=== PATIENT | female | born 1980 | race African-American/Black ===

== ENCOUNTER 2016-11-13 03:45 | Emergency (ER) | payer OTHER ==
[2016-11-13 04:53] VITALS: PULSE 82; BMI 20.9
[2016-11-13] MEDS ORDERED: SODIUM CHLORIDE 0.9% 1000 ML INFUS.BAG IV ONE (05:07)
[2016-11-13] MEDS ORDERED: HYDROmorphone HCL CARPU-JECT 1 MG/1 ML DISP.SYRIN IVPUSH ONE ×2 (05:07→06:37)
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
[2016-11-13] MEDS ORDERED: HYDROmorphone HCL CARPU-JECT 1 MG/1 ML DISP.SYRIN ONE ×2 (05:19→06:42)
[2016-11-13 05:53] LABS: URINE APPEARANCE CLEAR; URINE BILIRUBIN NEGATIVE (NEGATIVE); URINE BLOOD NEGATIVE (NEGATIVE); URINE COLOR LTYELLOW; URINE GLUCOSE (UA) NEGATIVE (NEGATIVE); URINE KETONE NEGATIVE (NEGATIVE); URINE LEUK ESTERASE NEGATIVE (NEGATIVE); URINE NITRITE NEGATIVE (NEGATIVE); URINE PROTEIN NEGATIVE (NEGATIVE); URINE UROBILINOGEN NEGATIVE E.U./dl (0.2-1.0)
[2016-11-13 05:57] LABS: BASOPHIL 0.9 % (0-2.0); EOSINOPHIL 1.1 % (0-4.5); MCH 28.9 pg (25.7-33.7); MCHC 35.3 g/dl (32.0-36.0); MEAN CELL VOLUME 81.8 fl (80-96); NEUTROPHILS 55.5 % (42.8-82.8); PLATELET COUNT 160 K/MM3 (134-434); RDW 13.8 % (11.6-15.6); WHITE BLOOD COUNT 5.5 K/mm3 (4.0-10.0)
[2016-11-13 06:12] LABS: ALBUMIN 4.2 g/dl (3.4-5.0); ANION GAP 8 (8-16); BILIRUBIN,TOTAL 1.6 mg/dL (0.2-1.0); CALCIUM 8.5 mg/dL (8.5-10.1); CO2 26 mmol/L (21-32); CREATININE 0.7 mg/dL (0.55-1.02); GLUCOSE,RANDOM 78 mg/dL (74-106); SGOT/AST 14 U/L (15-37); SGPT/ALT 13 U/L (12-78); TOT PROT 6.8 g/dl (6.4-8.2)
[2016-11-13 06:13] LABS: ALK PHOS 81 U/L (45-117)
[2016-11-13] MEDS ORDERED: KETOROLAC TROMETHAMINE 30 MG/1 ML VIAL ONE (06:25)
[2016-11-13] MEDS ORDERED: KETOROLAC TROMETHAMINE 30 MG/1 ML VIAL IVPUSH ONE (06:30)
--- NOTE | 2016-11-13 07:45 | PDOC ---
*Physical Exam - Vital Signs Last Vital Signs Temp Pulse Resp BP Pulse Ox 98 F 82 20 111/85 100 11/13/16 03:46 11/13/16 03:46 11/13/16 03:46 11/13/16 03:46 11/13/16 03:46 - Physical Exam General Appearance: Yes: Appropriately Dressed. No: Apparent Distress HEENT: positive: Normal Voice Neck: positive: Supple Respiratory/Chest: negative: Respiratory Distress Gastrointestinal/Abdominal: positive: Soft. negative: Tender Extremity: positive: Normal Inspection. negative: Tender, Swelling Integumentary: positive: Dry, Warm Neurologic: positive: Fully Oriented, Alert, Normal Mood/Affect ED Treatment Course - LABORATORY CBC & Chemistry Diagram: 11/13/16 05:07 11/13/16 05:07 - ADDITIONAL ORDERS Additional order review: Laboratory Results 11/13/16 11/13/16 11/13/16 05:39 05:39 05:07 Sodium 144 Potassium 4.0 Chloride 110 H Carbon Dioxide 26 Anion Gap 8 BUN 14 D Creatinine 0.7 D Creat Clearance w eGFR > 60 Random Glucose 78 Calcium 8.5 Total Bilirubin 1.6 H D AST 14 L ALT 13 D Alkaline Phosphatase 81 Total Protein 6.8 Albumin 4.2 Urine Color Ltyellow Urine Appearance Clear Urine pH 5.0 Ur Specific [place] 1.012 Urine Protein Negative Urine Glucose (UA) Negative Urine Ketones Negative Urine Blood Negative Urine Nitrite Negative Urine Bilirubin Negative Urine Urobilinogen Negative Ur Leukocyte Esterase Negative Urine HCG, Qual Negative 11/13/16 05:07 RBC 4.09 MCV 81.8 MCHC 35.3 RDW 13.8 MPV 11.0 Neutrophils % 55.5 D Lymphocytes % 36.4 D Monocytes % 6.1 Eosinophils % 1.1 D Basophils % 0.9 - Medications Given in the ED: ED Medications Discontinued Medications Generic Name Dose Route Start Last Admin Trade Name Freq PRN Reason Stop Dose Admin Hydromorphone HCl 1 mg 11/13/16 05:07 11/13/16 05:29 Dilaudid Injection - IVPUSH 11/13/16 05:08 1 mg ONCE ONE Administration Hydromorphone HCl 1 mg 11/13/16 06:37 11/13/16 06:48 Dilaudid Injection - IVPUSH 11/13/16 06:38 1 mg ONCE ONE Administration Ketorolac Tromethamine 30 mg 11/13/16 06:30 11/13/16 06:40 Toradol Injection - IVPUSH 11/13/16 06:31 30 mg ONCE ONE Administration Sodium Chloride 2,000 ml 11/13/16 05:07 11/13/16 05:29 Normal Saline - IV 11/13/16 05:08 2,000 ml ONCE ONE Administration Medical Decision Making - Medical Decision Making 11/13/16 07:43 Patient signed out to me at 7 AM Patient is a 35-year-old female, endorses history of sickle cell disease with frequent pain crisis, denies acute chest or prior transfusions. Currently does not have a atomic fuel assembler and not on any daily meds, presenting with left knee pain x 3 days, similar to her crisis. Has since improved with multiple doses of Dilaudid. Labs pending. Anticipate discharge with referral to atomic fuel assembler 11/13/16 07:45 Rectic count of >3, rest of labs unremarkable. Patient currently pain-free. Will dc with small amount of Dilaudid for pain when necessary and refer to Dr. Briscoe of hematology 11/13/16 07:53 *DC/Admit/Observation/Transfer Diagnosis at time of Disposition: Sickle cell crisis - Discharge Dispostion Disposition: HOME Condition at time of disposition: Improved - Prescriptions Prescriptions: Hydromorphone HCl [Dilaudid] 2 mg PO Q6H PRN #8 tablet MDD 8mg PRN Reason: Pain - Referrals Referrals: Mame Stephens [Primary Care Provider] - Crescencio Briscoe MD [Staff Physician] - - Patient Instructions Printed Discharge Instructions: DI for Sickle Cell Anemia, Pain Crisis -- Adult Additional Instructions: Take medication as directed and follow up with Dr. Briscoe of hematology - Post Discharge Activity
[2016-11-13 08:04] VITALS: BP 126/75; TEMP 97.7
== END 2016-11-13 08:00 | disposition home or self-care (01) ==
LOC: JER 03:45
PROC: 3E033NZ Introduction of Analgesics, Hypnotics, Sedatives into Peripheral Vein, Percutaneous Approach (ICD-10-PCS; principal; 2016-11-13)
PROC: 3E033NZ Introduction of Analgesics, Hypnotics, Sedatives into Peripheral Vein, Percutaneous Approach (ICD-10-PCS; 2016-11-13)
PROC: 3E0333Z Introduction of Anti-inflammatory into Peripheral Vein, Percutaneous Approach (ICD-10-PCS; 2016-11-13)
DX: D57.00 Hb-SS disease with crisis, unspecified (principal)
CPT/HCPCS: 36415; 80053; 81003; 84703; 85025; 85044; 96374; 96375; 96376; 99284-25

== ENCOUNTER 2017-01-31 13:44 | Emergency (ER) | payer OTHER ==
[2017-01-31 13:50] VITALS: BP 108/81; PULSE 92; TEMP 98.8; BMI 21.7
--- NOTE | 2017-01-31 14:05 | PDOC ---
History of Present Illness - General Chief Complaint: Eye Problem Stated Complaint: PINK EYE Time Seen by Provider: 01/31/17 13:52 History Source: Patient Exam Limitations: No Limitations - History of Present Illness Initial Comments: 01/31/17 13:59 36-year-old female presents to the ED with complaints of left eye redness and drainage, and itching for the past few days. Patient denies visual changes, headache, dizziness or recent injury to the affected eye, or eyelid swelling. Timing/Duration: constant Severity: mild Associated Symptoms: reports: denies symptoms Past History - Past Medical History Allergies/Adverse Reactions: Allergies Allergy/AdvReac Type Severity Reaction Status Date / Time No Known Allergies Allergy Verified 01/31/17 13:49 Home Medications: Ambulatory Orders NK [No Known Home Medication] 01/31/17 Anemia: Yes (sickle cell) Diabetes: No GI Disorders: No Disorders: No HTN: No Hypercholesterolemia: No Suicide Attempt (Hx): No Seizures: No - Surgical History Abdominal Surgery: No Appendectomy: No Cardiac Surgery: No Cholecystectomy: No Gastric Stapling: No Orthopedic Surgery: Yes (r femur fx) - Immunization History Immunization Up to Date: Yes - Psycho/Social/Smoking Cessation Hx Anxiety: No Suicidal Ideation: No Smoking Status: No Smoking History: Never smoked Have you smoked in the past 12 months: No Number of Cigarettes Smoked Daily: 0 Hx Alcohol Use: Yes (SOCIAL) Drug/Substance Use Hx: No Substance Use Type: None Hx Substance Use Treatment: No Patient Lives Alone: No Lives with/in: spouse/SO Review of Systems - Review of Systems Able to Perform ROS?: Yes Constitutional: No: Symptoms Reported HEENTM: Yes: Eye Pain, Tearing Integumentary: No: Erythema Neurological: No: Headache *Physical Exam - Vital Signs Last Vital Signs Temp Pulse Resp BP Pulse Ox 98.8 F 92 H 20 108/81 100 01/31/17 13:47 01/31/17 13:47 01/31/17 13:47 01/31/17 13:47 01/31/17 13:47 - Physical Exam General Appearance: Yes: Nourished, Appropriately Dressed. No: Apparent Distress HEENT: positive: EOMI, MAGO, Other (sclera red and noted thick yellowish drainage near the left lacrimal duct) Respiratory/Chest: positive: Lungs Clear, Normal Breath Sounds. negative: Respiratory Distress, Accessory Muscle Use Cardiovascular: positive: Regular Rhythm, Regular Rate. negative: Murmur Gastrointestinal/Abdominal: positive: Soft. negative: Tenderness Extremity: positive: Normal Capillary Refill. negative: Pedal Edema Integumentary: positive: Normal Color, Warm, Moist Neurologic: positive: Motor Strength 5/5 (ambulatory) Medical Decision Making - Medical Decision Making 01/31/17 14:04 Pt with left eye conjunctivitis. Pt ordered for erythromycin oitment *DC/Admit/Observation/Transfer Diagnosis at time of Disposition: Conjunctivitis Qualifiers: Conjunctivitis type: acute Acute conjunctivitis type: bacterial Laterality: left Qualified Code(s): H10.32 - Unspecified acute conjunctivitis, left eye - Discharge Dispostion Disposition: HOME Condition at time of disposition: Good - Referrals Referrals: Mame Stephens [Primary Care Provider] - - Patient Instructions Printed Discharge Instructions: DI for Conjunctivitis Additional Instructions: Please use oitment to left eye. Wash hands frequently.
== END 2017-01-31 14:13 | disposition home or self-care (01) ==
LOC: JERFT 13:44
DX: H10.32 Unspecified acute conjunctivitis, left eye (principal)
CPT/HCPCS: 99281-25

== ENCOUNTER 2017-05-05 21:39 | Emergency (ER) | payer OTHER ==
[2017-05-05 21:45] VITALS: BP 147/72; PULSE 94; TEMP 99.1; BMI 24.3
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
[2017-05-05] MEDS ORDERED: KETOROLAC TROMETHAMINE 60 MG/2 ML VIAL IM ONE (23:17)
[2017-05-05] MEDS ORDERED: KETOROLAC TROMETHAMINE 60 MG/2 ML VIAL ONE (23:35)
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
== END 2017-05-06 00:07 ==
LOC: SUPCPDRO 21:39 → JER 21:39
CPT/HCPCS: 99281-25

== ENCOUNTER 2020-05-10 13:26 | Emergency (ER) | payer OTHER ==
[2020-05-10 13:40] VITALS: BMI 22.6
[2020-05-10] MEDS ORDERED: HYDROmorphone HCL CARPU-JECT 2 MG/1 ML DISP.SYRIN IVPB ONE (14:40)
[2020-05-10] MEDS ORDERED: HYDROmorphone HCl 2 MG/ML VIAL ONE ×2 (14:42→16:46)
[2020-05-10 15:15] LABS: BASO % 1.1 % (0-2.0); EOS % 2.3 % (0-4.5); HEMATOCRIT 33.5 % (32.4-45.2); HEMOGLOBIN 11.6 GM/dL (10.7-15.3); LYMPH % 37.3 % (8-40); MCH 28.2 pg (25.7-33.7); MCHC 34.6 g/dl (32.0-36.0); MEAN CELL VOLUME 81.5 fl (80-96); MEAN PLT VOLUME 10.4 fl (7.5-11.1); MONO % 4.8 % (3.8-10.2); NEUT % 54.5 % (42.8-82.8); PLATELET COUNT 159 K/MM3 (134-434); RBC 4.11 M/mm3 (3.60-5.2); RDW 13.9 % (11.6-15.6); RETICULOCYTES 3.04 % (0.5-1.5); WHITE BLOOD COUNT 6.7 K/mm3 (4.0-10.0)
[2020-05-10] MEDS ORDERED: SODIUM CHLORIDE 1,000 ML IV ONE (15:18)
--- NOTE | 2020-05-10 15:22 | PDOC ---
History of Present Illness - General Chief Complaint: Sickle Cell Crisis Stated Complaint: LT LEG PAIN Time Seen by Provider: 05/10/20 14:29 - History of Present Illness Initial Comments: 05/10/20 15:13 39yo F with PMH of sickle cell disease and traumatic right femur fracture present with left hip pain since this morning. She states it feels like past crises, but is just the left leg, whereas in the past it has been bilateral and made her unable to walk. She complains fo throbbing left hip pain, radiating down the leg and to the lower back. After given 1mg dilaudid IV in the ER, it localized just to the left hip. Also reports feeling more cold recently, which is a trigger for her. Denies trauma, fevers, saddle anesthesia, urinary or GI symptoms. Denies chest pain or SOB. PMH/PSH: as above Meds: none Allergies: none ETOH/tob/drugs: denies ROS GENERAL/CONSTITUTIONAL: No fever. Chills. No weakness. HEAD, EYES, EARS, NOSE AND THROAT: No change in vision. No ear pain or discharge. No sore throat. CARDIOVASCULAR: No chest pain or shortness of breath RESPIRATORY: No cough, wheezing, or hemoptysis. GASTROINTESTINAL: No nausea, vomiting, diarrhea or constipation. GENITOURINARY: No dysuria, frequency, or change in urination. MUSCULOSKELETAL: Left hip pain. No neck pain. SKIN: No rash NEUROLOGIC: No headache, vertigo, loss of consciousness, or change in strength/sensation. ENDOCRINE: No increased thirst. No abnormal weight change HEMATOLOGIC/LYMPHATIC: No anemia, easy bleeding, or history of blood clots. ALLERGIC/IMMUNOLOGIC: No hives or skin allergy. PE GENERAL: Awake, alert, and fully oriented, writhing in pain with tears streaming down her face. More comfortable after 1mg dilaudid IV HEAD: No signs of trauma, normocephalic, atraumatic EYES: PERRLA, EOMI, sclera anicteric, conjunctiva clear ENT: Auricles normal inspection, hearing grossly normal, nares patent, oropharynx clear without exudates. Moist mucosa NECK: Normal ROM, supple, no lymphadenopathy, JVD, or masses LUNGS: No distress, speaks full sentences, clear to auscultation bilaterally HEART: Regular rate and rhythm, normal S1 and S2, no murmurs, rubs or gallops, peripheral pulses normal and equal bilaterally. ABDOMEN: Soft, nontender, normoactive bowel sounds. No guarding, no rebound. No masses EXTREMITIES : Normal inspection, Normal range of motion, no edema. No clubbing or cyanosis. Left anterior pelvis and quad tender to palpation. Full active and passive range of motion. Normal strength and sensation. Good distal pulses. NEUROLOGICAL: Cranial nerves II through XII grossly intact. Normal speech, normal gait, no focal sensorimotor deficits SKIN: Warm, Dry, normal turgor, no rashes or lesions noted Vital Signs Temp Pulse Resp BP Pulse Ox 98.3 F 84 20 107/66 100 05/10/20 13:38 05/10/20 13:38 05/10/20 13:38 05/10/20 13:38 05/10/20 13:38 MDM 9yo F with PMH of sickle cell disease and traumatic right femur fracture present with left hip pain since this morning. Differential includes sickle cell crisis, avascular necrosis, osteomyeletis. -CBC, CMP, reticulocytes, -dilaudid 1mg IV -plain films of the left hip/pelvis and femur 05/10/20 16:45 Patient was still in significant pain, so additional 0.5mg dilaudid given 05/10/20 16:47 Labs notable for a reticulocyte percentage of 3.04. X-rays negative 05/10/20 18:13 Patient reports improvement in symptoms after dilaudid. She has not seen a coil tier in 3 years. Will refer to hematology and DC on naproxen. Patient understands and agrees to plan Past History - Medical History Allergies/Adverse Reactions: Allergies Allergy/AdvReac Type Severity Reaction Status Date / Time No Known Allergies Allergy Verified 05/10/20 13:38 Home Medications: Ambulatory Orders Naproxen 500 mg PO BID PRN 7 Days #14 tablet 05/10/20 Anemia: Yes (sickle cell) COPD: No Diabetes: No GI Disorders: No Disorders: No HTN: No Hypercholesterolemia: No Seizures: No - Surgical History Abdominal Surgery: No Appendectomy: No Cardiac Surgery: No Cholecystectomy: No Gastric Stapling: No Orthopedic Surgery: Yes (r femur fx) - Reproductive History Is Patient Now?: No - Immunization History Immunization Up to Date: Yes - Psycho-Social/Smoking History Smoking Status: No Smoking History: Current every day smoker Have you smoked in the past 12 months: No Number of Cigarettes Smoked Daily: 1 Information on smoking cessation initiated: No - Substance Abuse Hx (Audit-C & DAST Scrn) How often the patient has a drink containing alcohol: Never Score: In Men: 4 or > Positive; In Women: 3 or > Positive: 0 Screen Result (Pos requires Nsg. Audit-10AR): Negative In the last yr the pt used illegal drug/Rx for NonMed reason: Yes Score: Yes response is considered Positive: 1 Screen Result (Positive result requires Nsg. DAST-10): Positive *Physical Exam - Vital Signs Last Vital Signs Temp Pulse Resp BP Pulse Ox 98.3 F 84 20 107/66 100 05/10/20 13:38 05/10/20 13:38 05/10/20 13:38 05/10/20 13:38 05/10/20 13:38 ED Treatment Course - LABORATORY CBC & Chemistry Diagram: 05/10/20 14:20 05/10/20 14:20 - RADIOLOGY Radiology Studies Ordered: Category Date Time Status FEMUR-LEFT [RAD] Stat Radiology 05/10/20 15:11 Ordered HIP & PELVIS-LEFT [RAD] Stat Radiology 05/10/20 15:12 Ordered - Medications Given in the ED: ED Medications Discontinued Medications Generic Name Dose Route Start Last Admin Trade Name Toshia PRN Reason Stop Dose Admin Hydromorphone HCl 1 mg 05/10/20 14:40 05/10/20 14:48 Dilaudid Injection - IVPB 05/10/20 14:41 1 mg ONCE ONE Administration Discharge - Discharge Information Problems reviewed: Yes Clinical Impression/Diagnosis: Sickle cell crisis Condition: Fair Disposition: HOME - Admission No - Additional Discharge Information Prescriptions: Naproxen 500 mg PO BID PRN 7 Days #14 tablet PRN Reason: Pain - Follow up/Referral Referrals: Robina Downing MD [Staff Physician] - Sandoval Franco MD [Primary Care Provider] - - Patient Discharge Instructions Patient Printed Discharge Instructions: DI for Sickle Cell Anemia, Pain Crisis -- Adult Additional Instructions: You were seen in the ER for left hip pain. Your labs showed evidence that you were in a sickle cell pain crisis. Your x-rays did not show any structural problems with your hip. We sent a prescription for naproxen to your pharmacy. In order to prevent these crises from happening, you need to follow up with a coil tier as soon as possible. We gave you a referral to Dr. Downing.. Please follow up with your primary doctor within one week. Please return to the ER for continued or worsening symptoms, for fever, chest pain, or any other reason. - Post Discharge Activity
--- NOTE | 2020-05-10 15:26 | PDOC ---
Attending Attestation - Resident Resident Name: Peter Talamantes - ED Attending Attestation I have performed the following: I have examined & evaluated the patient, The case was reviewed & discussed with the resident, I agree w/resident's findings & plan - HPI HPI: 05/10/20 15:23 39-year-old female with history of sickle cell SS relatively well-controlled with about once yearly visits to the emergency department for sickle cell crisis characterized by joint pain typically in the low back and hips, presents today with left leg pain over the last few days. Triggers are usually temperature variations, and she is very careful to avoid these. Does not take any medications on a daily basis, has had no significant complications of sickle cell in the past. - Physicial Exam PE: 05/10/20 15:24 Lying in stretcher, tearful in moderate distress from upper left leg pain, otherwise conversant Moist mucosa Heart is regular, lungs are clear, abdomen benign No focal bony tenderness or deformity, full range of motion of hip and knee and ankle on left leg, no midline spine tenderness, no soft tissue swelling or joint effusion, 2+ distal pulses - Medical Decision Making 05/10/20 15:25 39-year-old female with history of sickle cell SS with typical crisis joint pain in the left leg/hip, neurovascular intact otherwise without acute neurologic or infectious process and no other red flags. Check labs IV fluids hydration, pain control, oxygen Left hip x-ray Reassess and disposition accordingly Discharge - Discharge Information Problems reviewed: Yes Clinical Impression/Diagnosis: Sickle cell crisis Condition: Fair - Follow up/Referral Referrals: Sandoval Franco MD [Primary Care Provider] - - Patient Discharge Instructions - Post Discharge Activity
[2020-05-10] MEDS ORDERED: HYDROmorphone HCL CARPU-JECT 2 MG/1 ML DISP.SYRIN IVPUSH ONE (15:41)
[2020-05-10 15:49] LABS: BILIRUBIN,TOTAL 0.9 mg/dL (0.2-1); BLOOD UREA NITROGEN 11.6 mg/dL (7-18); CALCIUM 8.9 mg/dL (8.5-10.1); CREATININE 0.8 mg/dL (0.55-1.3); POTASSIUM 4.3 mmol/L (3.5-5.1)
[2020-05-10 17:37] VITALS: BP 101/62; PULSE 83; TEMP 97.6
== END 2020-05-10 18:07 | disposition home or self-care (01) ==
LOC: JER 13:26
PROC: 3E033NZ Introduction of Analgesics, Hypnotics, Sedatives into Peripheral Vein, Percutaneous Approach (ICD-10-PCS; principal; 2020-05-10)
PROC: 3E0337Z Introduction of Electrolytic and Water Balance Substance into Peripheral Vein, Percutaneous Approach (ICD-10-PCS; 2020-05-10)
DX: D57.219 Sickle-cell/Hb-C disease with crisis, unspecified (principal)
CPT/HCPCS: 36415; 73523-TC-FY; 73552-TC-LT-FY; 80053; 84703; 85025; 85045; 99285-25

== ENCOUNTER 2020-05-31 13:45 | Emergency (ER) | payer OTHER ==
[2020-05-31 13:57] VITALS: BMI 22.6
--- NOTE | 2020-05-31 13:58 | PDOC ---
Rapid Medical Evaluation Time Seen by Provider: 05/31/20 13:51 Medical Evaluation: Allergies Allergy/AdvReac Type Severity Reaction Status Date / Time No Known Allergies Allergy Verified 05/10/20 13:38 05/31/20 13:51 Pt with hx of sickle cell presents for R sided flank pain since yesterday. States that she woke up with the pain. 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 Denies trauma or new exercise routine Exam: TTP of the R flank, RUQ Orders: labs, IV. Imaging deferred to provider Pt to proceed to the ER for further evaluation Discharge Disposition - Diagnosis Abdominal pain - Referrals - Patient Instructions - Post Discharge Activity
--- NOTE | 2020-05-31 15:23 | PDOC ---
History of Present Illness - General Chief Complaint: Pain Stated Complaint: RT ABD PAIN Time Seen by Provider: 05/31/20 13:51 History Source: Patient Exam Limitations: No Limitations - History of Present Illness Initial Comments: 05/31/20 15:20 Patient is a 39-year-old female with history of sickle cell disease who presents to the ED with complaint of right flank pain that started yesterday prior to going to work. She states the pain does not radiate. She denies any fevers or chills. She denies any shortness of breath or chest pain. She states the pain is less today but she still feels that so she came to the ED for evaluation to make sure everything was okay. She denies any injuries. She has not taken anything for symptoms. She has never had acute chest syndrome. She was seen 1 month ago for a sickle crisis but states she has been doing well ever since. Past History - Medical History Allergies/Adverse Reactions: Allergies Allergy/AdvReac Type Severity Reaction Status Date / Time No Known Allergies Allergy Verified 05/31/20 13:52 Anemia: Yes (sickle cell) COPD: No Diabetes: No GI Disorders: No Disorders: No HTN: No Hypercholesterolemia: No Seizures: No - Surgical History Abdominal Surgery: No Appendectomy: No Cardiac Surgery: No Cholecystectomy: No Gastric Stapling: No Orthopedic Surgery: Yes (r femur fx) - Reproductive History Is Patient Now?: No - Immunization History Immunization Up to Date: Yes - Psycho-Social/Smoking History Smoking Status: No Smoking History: Never smoked Have you smoked in the past 12 months: No Number of Cigarettes Smoked Daily: 1 - Substance Abuse Hx (Audit-C & DAST Scrn) How often the patient has a drink containing alcohol: Never Score: In Men: 4 or > Positive; In Women: 3 or > Positive: 0 Screen Result (Pos requires Nsg. Audit-10AR): Negative In the last yr the pt used illegal drug/Rx for NonMed reason: No Score: Yes response is considered Positive: 0 Screen Result (Positive result requires Nsg. DAST-10): Negative Review of Systems - Review of Systems Comments:: 05/31/20 15:21 - Review of Systems Able to Perform ROS?: Yes Constitutional: No: Fever, Chills, Loss of Appetite, Night Sweats, Weakness HEENTM: No: Eye Pain, Vision changes, Ear Pain, Throat Pain, Throat Swelling, Mouth Pain, Difficulty Swallowing Respiratory: No: Cough, Shortness of Breath, Wheezing, Sputum Production Cardiac (ROS): No: Chest Pain, Chest Tightness, Palpitations, Irregular Heart Beat, Edema ABD/GI: No: Nausea, Vomiting, Abdominal Pain, Diarrhea; positive: Right flank pain : No Dysuria, No Hematuria, No Frequency, No Urgency Musculoskeletal: No: Muscle Pain, Back Pain, Joint Pain, Muscle Weakness, Neck Pain Integumentary: No: Lesions, Rash Neurological: No: Headache, Numbness, Tingling, Weakness, Speech Difficulties *Physical Exam - Vital Signs Last Vital Signs Temp Pulse Resp BP Pulse Ox 98.4 F 78 16 125/82 100 05/31/20 13:52 05/31/20 13:52 05/31/20 13:52 05/31/20 13:52 05/31/20 13:52 - Physical Exam 05/31/20 15:22 - Physical Exam General Appearance: Nourished, Appropriately Dressed, No Distress HEENT: EOMI, Normal Voice, Hearing Grossly Normal Neck: Supple, No Lymphadenopathy (R), No Lymphadenopathy (L), No Rigidity, No Decreased range of motion Respiratory/Chest: Lungs Clear, Normal Breath Sounds. No Respiratory Distress, No Accessory Muscle Use Cardiovascular: Regular Rhythm, Regular Rate, S1, S2 Gastrointestinal/Abdominal: Normal Bowel Sounds, Soft. Non-tender, No Guarding, No Rebound, No Rigidity; no reproducible right flank tenderness to palpation. Negative Hayes sign. Abdomen soft without rebound. No rigidity. Musculoskeletal: Normal Inspection. No Decreased Range of Motion Extremity: Normal Capillary Refill, Normal Inspection Integumentary: Normal Color, Dry. 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 Plan: -Labs ordered -EKG ordered -Chest x-ray ordered -Will reassess 05/31/20 16:21 Discussed the case with Dr. Mcmillan and the patient. We have discussed concern for renal/hepatic/splenic infarct and the need for a CT with contrast to rule out these concerns. The patient is okay with having a CT scan. The CT has been ordered. EKG at 15: 20 shows normal sinus rhythm at [address] or T wave abnormalities. 05/31/20 18:05 PT feeling well and is pending CT read. 05/31/20 18:21 The patient has been made aware that her CT is negative for acute splenic, hepatic or renal infarcts. Her pain is likely secondary to musculoskeletal pathology. She can take Tylenol or ibuprofen for pain as needed. She can follow-up with her primary doctor within 1 to 2 days for repeat evaluation. She understands and agrees with this treatment plan and she is stable for discharge. Discharge - Discharge Information Problems reviewed: Yes Clinical Impression/Diagnosis: Abdominal pain, Right flank pain, Musculoskeletal pain Condition: Stable Disposition: HOME - Follow up/Referral Referrals: Sandoval Franco MD [Primary Care Provider] - 24 hours - Patient Discharge Instructions Patient Printed Discharge Instructions: DI for Muscle Strain, DI for Flank Pain Additional Instructions: Your labs and your CT scan were all within normal limits. You should follow-up with your primary doctor within 1 to 2 days for repeat evaluation. Your pain is likely secondary to a musculoskeletal cause. Take Tylenol or ibuprofen as needed for pain. - Post Discharge Activity Work/Back to School Note: Back to Work
[2020-05-31 15:36] LABS: BASO % 0.7 % (0-2.0); HEMATOCRIT 32.9 % (32.4-45.2); HEMOGLOBIN 11.6 GM/dL (10.7-15.3); LYMPH % 24.8 % (8-40); MCH 28.9 pg (25.7-33.7); MCHC 35.4 g/dl (32.0-36.0); MEAN CELL VOLUME 81.7 fl (80-96); MEAN PLT VOLUME 10.6 fl (7.5-11.1); MONO % 7.8 % (3.8-10.2); NEUT % 64.7 % (42.8-82.8); PLATELET COUNT 161 K/MM3 (134-434); RBC 4.03 M/mm3 (3.60-5.2); RDW 14.1 % (11.6-15.6); RETICULOCYTES 2.51 % (0.5-1.5); WHITE BLOOD COUNT 5.3 K/mm3 (4.0-10.0)
[2020-05-31 15:37] LABS: URINE APPEARANCE CLEAR; URINE BILIRUBIN NEGATIVE (NEGATIVE); URINE COLOR YELLOW; URINE GLUCOSE (UA) NEGATIVE (NEGATIVE); URINE KETONE NEGATIVE (NEGATIVE); URINE LEUK ESTERASE NEGATIVE (NEGATIVE); URINE NITRITE NEGATIVE (NEGATIVE); URINE PROTEIN NEGATIVE (NEGATIVE)
[2020-05-31 15:40] LABS: HCG,QUALITATIVE URINE Negative; INR 1.17 (0.83-1.09); PROTHROMBIN TIME (PATIENT) 13.8 SEC (9.7-13.0)
[2020-05-31 15:59] LABS: ALBUMIN 3.8 g/dl (3.4-5.0); BILIRUBIN,TOTAL 0.8 mg/dL (0.2-1); BLOOD UREA NITROGEN 8.6 mg/dL (7-18); CALCIUM 8.6 mg/dL (8.5-10.1); CREATININE 0.7 mg/dL (0.55-1.3); POTASSIUM 3.6 mmol/L (3.5-5.1); TOT PROT 6.9 g/dl (6.4-8.2)
[2020-05-31] MEDS ORDERED: SODIUM CHLORIDE 0.9% 500 ML INFUS.BAG IV ONE (16:24)
[2020-05-31 18:49] VITALS: BP 107/73; PULSE 74; TEMP 98
--- NOTE | 2020-06-01 09:43 | EKG ---
Test Reason : Blood Pressure : / mmHG Vent. Rate : 071 BPM Atrial Rate : 071 BPM P-R Int : 154 ms QRS Dur : 068 ms QT Int : 384 ms P-R-T Axes : 043 022 027 degrees QTc Int : 417 ms NORMAL SINUS RHYTHM NORMAL ECG WHEN COMPARED WITH ECG OF 20-JUL-2016 12:34, NO SIGNIFICANT CHANGE WAS FOUND Confirmed by Emile Boogie ([id number]) on 06/01/2020 9:42:59 AM Referred By: Confirmed By:Emile Boogie
== END 2020-05-31 18:40 | disposition home or self-care (01) ==
LOC: JER 13:45
DX: R10.9 Unspecified abdominal pain (principal)
CPT/HCPCS: 36415; 71046-TC-FY; 74177-TC; 80053; 81003; 84703; 85025; 85045; 85610; 87086; 93005; 93010; 99285-25; Q9967

== ENCOUNTER 2020-06-14 13:17 | Emergency (ER) | payer OTHER ==
[2020-06-14 13:30] VITALS: BP 121/69; PULSE 97; TEMP 98.2; BMI 22.6
[2020-06-14] MEDS ORDERED: SODIUM CHLORIDE 1,000 ML IV STA (14:26)
[2020-06-14] MEDS ORDERED: ACETAMINOPHEN 1000 MG/100 ML VIAL (NON FORMULARY) IVPB ONE (14:26)
[2020-06-14] MEDS ORDERED: LIDOCAINE 5% TOPICAL PATCH TP ONE (14:26)
[2020-06-14] MEDS ORDERED: ACETAMINOPHEN INJECTION 100 ML IVPB ONE (15:00)
--- NOTE | 2020-06-14 15:17 | PDOC ---
History of Present Illness - General Chief Complaint: Pain Stated Complaint: ABD PAID Time Seen by Provider: 06/14/20 13:31 Past History - Travel History Traveled outside of the country in the last 30 days: No Close contact w/someone who was outside of country & ill: No - Medical History Allergies/Adverse Reactions: Allergies Allergy/AdvReac Type Severity Reaction Status Date / Time No Known Allergies Allergy Verified 05/31/20 13:52 Home Medications: Ambulatory Orders Cephalexin Monohydrate [Keflex -] 500 mg PO BID #14 capsule 06/14/20 Anemia: Yes (sickle cell) COPD: No Diabetes: No GI Disorders: No Disorders: No HTN: No Hypercholesterolemia: No Seizures: No - Surgical History Abdominal Surgery: No Appendectomy: No Cardiac Surgery: No Cholecystectomy: No Gastric Stapling: No Orthopedic Surgery: Yes (r femur fx) - Reproductive History Is Patient Now?: No - Immunization History Immunization Up to Date: Yes - Psycho-Social/Smoking History Smoking Status: No Smoking History: Never smoked Have you smoked in the past 12 months: No Number of Cigarettes Smoked Daily: 1 - Substance Abuse Hx (Audit-C & DAST Scrn) How often the patient has a drink containing alcohol: Never Score: In Men: 4 or > Positive; In Women: 3 or > Positive: 0 Screen Result (Pos requires Nsg. Audit-10AR): Negative In the last yr the pt used illegal drug/Rx for NonMed reason: No Score: Yes response is considered Positive: 0 Screen Result (Positive result requires Nsg. DAST-10): Negative Review of Systems - Review of Systems Able to Perform ROS?: Yes Comments:: 06/14/20 18:35 CONSTITUTIONAL: Absent: fever, chills, diaphoresis, generalized weakness, malaise, loss of appetite HEENT: Absent: rhinorrhea, nasal congestion, throat pain, throat swelling, difficulty swallowing, mouth swelling, ear pain, eye pain, visual Changes CARDIOVASCULAR: Absent: chest pain, loss of consciousness, palpitations, irregular heart rate, peripheral edema RESPIRATORY: Absent: cough, shortness of breath, dyspnea with exertion, orthopnea, wheezing, stridor, hemoptysis GASTROINTESTINAL: Absent: abdominal pain, abdominal distension, nausea, vomiting, diarrhea, constipation, melena, hematochezia GENITOURINARY: Present: R flank pain, hematuria Absent: dysuria, frequency, urgency, hesitancy, genital pain MUSCULOSKELETAL: Absent: myalgia, arthralgia, joint swelling SKIN: Absent: rash, itching, pallor HEMATOLOGIC/IMMUNOLOGIC: Absent: easy bleeding, easy bruising, lymphadenopathy, frequent infections ENDOCRINE: Absent: unexplained weight gain, unexplained weight loss, heat intolerance, cold intolerance NEUROLOGIC: Absent: headache, focal weakness or paresthesias, dizziness, unsteady gait, seizure, mental status changes, bladder or bowel incontinence PSYCHIATRIC: Absent: anxiety, depression, suicidal or homicidal ideation, hallucinations. Is the patient limited Citizen Of [place] proficient: No *Physical Exam - Vital Signs Last Vital Signs Temp Pulse Resp BP Pulse Ox 98.2 F 97 H 16 121/69 98 06/14/20 13:28 06/14/20 13:28 06/14/20 13:28 06/14/20 13:28 06/14/20 13:28 - Physical Exam 06/14/20 18:39 GENERAL: Well developed, well nourished. Awake and alert. No acute distress. HEENT: Normocephalic, atraumatic. PERRLA, EOMI. No conjunctival pallor. Sclera are non- icteric. Moist mucous membranes. Oropharynx is clear. NECK: Supple. Full ROM. No JVD. Carotid pulses 2+ and symmetric, without bruits. No thyromegaly. No lymphadenopathy. CARDIOVASCULAR: Regular rate and rhythm. No murmurs, rubs, or gallops. Distal pulses are 2+ and symmetric. PULMONARY: No evidence of respiratory distress. Lungs clear to auscultation bilaterally. No wheezing, rales or rhonchi. ABDOMINAL: Soft. Non-tender. Non-distended. No rebound or guarding. No organomegaly. Normoactive bowel sounds. MUSCULOSKELETAL Normal range of motion at all joints. No bony deformities or tenderness. (+) R CVA tenderness. EXTREMITIES: No cyanosis. No clubbing. No edema. No calf tenderness. SKIN: Warm and dry. Normal capillary refill. No rashes. No jaundice. NEUROLOGICAL: Alert, awake, appropriate. Cranial nerves 2-12 intact. No deficits to light touch and temperature in face, upper extremities and lower extremities. No motor deficits in the in face, upper extremities and lower extremities. Normoreflexic in the upper and lower extremities. Normal speech. Toes are down-going bilaterally. Gait is normal without ataxia. PSYCHIATRIC: Cooperative. Good eye contact. Appropriate mood and affect. ED Treatment Course - LABORATORY CBC & Chemistry Diagram: 06/14/20 16:40 06/14/20 16:40 - RADIOLOGY Radiology Studies Ordered: Category Date Time Status KIDNEY / RENAL US [US] Stat Ultrasound 06/14/20 14:26 Ordered PELVIC / BLADDER US [US] Stat Ultrasound 06/14/20 14:26 Ordered Medical Decision Making - Medical Decision Making 06/14/20 18:40 The patient with PMH of sickle cell, presents to the ER for evaluation of R flank pain and hematuria for the past 4 days. She states that she had similar symptoms on 05/31 for which she had a negative CTA and r/o renal artery dissect ion. She states the pain mildly improved after her visit, but returned over the last 4 days. Denies n/v/d, fever, sob, chest pain. A/P: Flank pain On exam, pt with R CVAT Given recent negative CTA, will order ultrasounds to rule out kidney stones as patient has 3+ blood in her urine. Does not seem like her typical sickle cell pain. No acute chest syndrome at this time. Basic labs unremarkable. Patient with also leukoesterase in the urine. Will treat for UTI. Ultrasound showed no evidence of stones at this time. No hydronephrosis. We will discharge home with primary care follow-up I discussed the physical exam findings, ancillary test results and final diagnoses with the patient. I answered all of the patient's questions. The patient was satisfied with the care received and felt comfortable with the discharge plan and treatment plan. The Patient agrees to follow up with the primary care physician/specialist within 24-72 hours. Return precautions were given. Discharge - Discharge Information Problems reviewed: Yes Clinical Impression/Diagnosis: UTI (urinary tract infection) Qualifiers: Urinary tract infection type: acute cystitis Hematuria presence: with hematuria Qualified Code(s): N30.01 - Acute cystitis with hematuria Condition: Stable Disposition: HOME - Admission No - Additional Discharge Information Prescriptions: Cephalexin Monohydrate [Keflex -] 500 mg PO BID #14 capsule - Follow up/Referral Referrals: [facility] [place] [Provider Group] - Patient Discharge Instructions Patient Printed Discharge Instructions: DI for Urinary Tract Infection (UTI) Additional Instructions: You have a urinary tract infection. This caused by bacteria. Please drink plenty of fluids. Take your antibiotics as prescribed. Finish the entire dose even if you feel better. You may take Tylenol or Motrin as needed for pain Please follow up with your primary care doctor this week. Return to the emergency department if you have fevers, chills, nausea, vomiting, back pain, or have any changes in your symptoms. - Post Discharge Activity Work/Back to School Note: Back to Work
[2020-06-14 16:54] LABS: EPI CELLS 26 /uL (0-25.1); HYALINE CASTS 1 /uL (0-3.1); PH,URINE >= 9.0 (5.0-8.0); URINE APPEARANCE CLOUDY; URINE BACTERIA 57 /uL (0-1359); URINE BILIRUBIN NEGATIVE (NEGATIVE); URINE COLOR RED; URINE GLUCOSE (UA) NEGATIVE (NEGATIVE); URINE KETONE NEGATIVE (NEGATIVE); URINE LEUK ESTERASE 1+ (NEGATIVE); URINE NITRITE NEGATIVE (NEGATIVE); URINE PROTEIN 2+ (NEGATIVE); URINE WBC 62 /uL (0-25.8)
[2020-06-14 16:56] LABS: HCG,QUALITATIVE URINE Negative
[2020-06-14 17:02] LABS: INR 1.04 (0.83-1.09); PROTHROMBIN TIME (PATIENT) 12.3 SEC (9.7-13.0)
[2020-06-14 17:25] LABS: BASO % 0.7 % (0-2.0); EOS % 1.6 % (0-4.5); HEMATOCRIT 32.8 % (32.4-45.2); HEMOGLOBIN 11.6 GM/dL (10.7-15.3); MCH 29.1 pg (25.7-33.7); MCHC 35.4 g/dl (32.0-36.0); MEAN CELL VOLUME 82.1 fl (80-96); MEAN PLT VOLUME 10.6 fl (7.5-11.1); MONO % 6.7 % (3.8-10.2); PLATELET COUNT 189 K/MM3 (134-434); RDW 14.1 % (11.6-15.6); RETICULOCYTES 2.35 % (0.5-1.5); WHITE BLOOD COUNT 5.8 K/mm3 (4.0-10.0)
[2020-06-14 17:30] LABS: ALBUMIN 3.9 g/dl (3.4-5.0); ALK PHOS 83 U/L (45-117); ANION GAP 7 MMOL/L (8-16); BILIRUBIN,TOTAL 0.6 mg/dL (0.2-1); BLOOD UREA NITROGEN 10.5 mg/dL (7-18); CHLORIDE 105 mmol/L (98-107); CO2 26 mmol/L (21-32); CREATININE 0.7 mg/dL (0.55-1.3); GLUCOSE,RANDOM 77 mg/dL (74-106); POTASSIUM 4.5 mmol/L (3.5-5.1); SGOT/AST 24 U/L (15-37); SGPT/ALT 27 U/L (13-61); SODIUM 139 mmol/L (136-145); TOT PROT 7.6 g/dl (6.4-8.2)
[2020-06-14 17:40] LABS: CALCIUM 7.7 mg/dL (8.5-10.1)
[2020-06-14 18:38] LABS: URINE RBC 23783.4 /uL (0-23.9)
[2020-06-14 18:39] LABS: YEAST NONE SEEN (NEGATIVE)
== END 2020-06-14 18:55 | disposition home or self-care (01) ==
LOC: JER 13:17
PROC: 3E0333Z Introduction of Anti-inflammatory into Peripheral Vein, Percutaneous Approach (ICD-10-PCS; principal; 2020-06-14)
PROC: 3E0337Z Introduction of Electrolytic and Water Balance Substance into Peripheral Vein, Percutaneous Approach (ICD-10-PCS; 2020-06-14)
DX: N30.01 Acute cystitis with hematuria (principal)
CPT/HCPCS: 36415; 76775-TC; 76856-TC; 80053; 81003; 82550; 84484; 84703; 85025; 85045; 85610; 99284-25; J0131

== ENCOUNTER 2021-08-07 10:38 | Emergency (ER) | payer OTHER ==
[2021-08-07 10:45] VITALS: BP 97/67; PULSE 96; TEMP 97; BMI 22.4
[2021-08-07] MEDS ORDERED: traMADol HCL 50 MG TABLET PO ONE (11:20)
[2021-08-07] MEDS ORDERED: HYDROmorphone HCL CARPU-JECT 2 MG/1 ML DISP.SYRIN IVPUSH ONE ×2 (11:25→13:21)
[2021-08-07] MEDS ORDERED: HYDROmorphone HCl 2 MG/ML VIAL ONE (11:47)
[2021-08-07 12:16] LABS: BASO % 0.6 % (0-2.0); EOS % 0.6 % (0-4.5); HEMATOCRIT 27.6 % (32.4-45.2); HEMOGLOBIN 9.7 GM/dL (10.7-15.3); LYMPH % 14.5 % (8-40); MCH 29.4 pg (25.7-33.7); MEAN CELL VOLUME 83.9 fl (80-96); MEAN PLT VOLUME 10.4 fl (7.5-11.1); MONO % 5.1 % (3.8-10.2); NEUT % 79.2 % (42.8-82.8); PLATELET COUNT 159 10^3/uL (134-434); RBC 3.29 M/mm3 (3.60-5.2); RETICULOCYTES 6.56 % (0.5-1.5); WHITE BLOOD COUNT 9.8 K/mm3 (4.0-10.0)
[2021-08-07 12:54] LABS: ALBUMIN 3.5 g/dl (3.4-5.0); BLOOD UREA NITROGEN 6.1 mg/dL (7-18); CALCIUM 8.8 mg/dL (8.5-10.1)
[2021-08-07 12:58] LABS: CREATININE 0.7 mg/dL (0.55-1.3)
[2021-08-07 12:59] LABS: BILIRUBIN,TOTAL 1.1 mg/dL (0.2-1); TOT PROT 6.8 g/dl (6.4-8.2)
== END 2021-08-07 15:40 | disposition home or self-care (01) ==
LOC: JER 10:38
PROC: 3E033NZ Introduction of Analgesics, Hypnotics, Sedatives into Peripheral Vein, Percutaneous Approach (ICD-10-PCS; principal; 2021-08-07)
PROC: 3E033GC Introduction of Other Therapeutic Substance into Peripheral Vein, Percutaneous Approach (ICD-10-PCS; 2021-08-07)
DX: D57.00 Hb-SS disease with crisis, unspecified (principal)
CPT/HCPCS: 36415; 71046-TC-FY; 76817-TC; 80053; 84702; 84703; 85025; 85045; 86850; 86900; 86901; 96374; 96375; 99284-25; C9803; U0003; U0005

== ENCOUNTER 2023-05-22 14:58 | Emergency (ER) | payer OTHER ==
[2023-05-22 15:04] VITALS: BP 116/86; PULSE 96; RESP 20; TEMP 98.4; BMI 26.2
[2023-05-22] MEDS ORDERED: KETOROLAC TROMETHAMINE 30 MG/1 ML VIAL IM ONE (15:59)
[2023-05-22] MEDS ORDERED: KETOROLAC TROMETHAMINE 30 MG/1 ML VIAL ONE (16:10)
[2023-05-22 16:59] LABS: EPI CELLS 20 /uL (0-25.1); HCG,QUALITATIVE URINE Negative; HYALINE CASTS 0 /uL (0-3.1); PH,URINE 5.5 (5.0-8.0); URINE APPEARANCE CLEAR; URINE BACTERIA 357 /uL (0-1359); URINE BILIRUBIN NEGATIVE (NEGATIVE); URINE COLOR YELLOW; URINE GLUCOSE (UA) NEGATIVE (NEGATIVE); URINE KETONE TRACE (NEGATIVE); URINE LEUK ESTERASE TRACE (NEGATIVE); URINE NITRITE NEGATIVE (NEGATIVE); URINE PROTEIN NEGATIVE (NEGATIVE); URINE RBC 9 /uL (0-23.9); URINE UROBILINOGEN 0.2 mg/dL (0.2-1.0); URINE WBC 7 /uL (0-25.8)
== END 2023-05-22 17:24 | disposition home or self-care (01) ==
LOC: JERFT 14:58
PROC: 3E0233Z Introduction of Anti-inflammatory into Muscle, Percutaneous Approach (ICD-10-PCS; principal; 2023-05-22)
DX: R09.81 Nasal congestion (principal); R51.9 Headache, unspecified; U07.1 COVID-19; R43.9 Unspecified disturbances of smell and taste
CPT/HCPCS: 0241U-QW; 81003; 84703; 87086; 99284-25

== ENCOUNTER 2023-06-25 12:58 | Inpatient (IN) | payer OTHER ==
[2023-06-25] MEDS ORDERED: SODIUM CHLORIDE 1,000 ML IV STA (14:49)
[2023-06-25] MEDS ORDERED: morphine CARPU-JECT 4 MG/1 ML DISP.SYRIN IVPUSH ONE ×2 (14:49→16:07)
[2023-06-25] MEDS ORDERED: morphine SULFATE 4 MG/ML VIAL ONE ×2 (15:08→16:09)
[2023-06-25] MEDS ORDERED: morphine CARPU-JECT 2 MG/1 ML DISP.SYRIN IVPUSH ONE (16:06)
[2023-06-25] MEDS ORDERED: HYDROmorphone HCl 2 MG/ML VIAL IVPUSH ONE (17:21)
[2023-06-25] MEDS ORDERED: HYDROmorphone HCl 2 MG/ML VIAL ONE ×2 (17:36→22:56)
[2023-06-25 18:05] LABS: EOS % 0.4 % (0-4.5); HEMATOCRIT 33.6 % (32.4-45.2); HEMOGLOBIN 11.5 GM/dL (10.7-15.3); LYMPH % 21.9 % (8-40); MCH 27.6 pg (25.7-33.7); MCHC 34.3 g/dl (32.0-36.0); MEAN CELL VOLUME 80.5 fl (80-96); MEAN PLT VOLUME 9.9 fl (7.5-11.1); MONO % 4.5 % (3.8-10.2); NEUT % 72.2 % (42.8-82.8); PLATELET COUNT 149 10^3/uL (134-434); RBC 4.17 M/mm3 (3.60-5.2); RDW 14.7 % (11.6-15.6); RETICULOCYTES 3.51 % (0.5-1.5); WHITE BLOOD COUNT 6.4 K/mm3 (4.0-10.0)
[2023-06-25 18:13] LABS: POTASSIUM 3.6 mmol/L (3.5-5.1)
[2023-06-25 18:15] LABS: ALBUMIN 3.8 g/dl (3.4-5.0); BLOOD UREA NITROGEN 7.6 mg/dL (7-18); CALCIUM 8.2 mg/dL (8.5-10.1)
[2023-06-25 18:18] LABS: CREATININE 0.5 mg/dL (0.55-1.3)
[2023-06-25 18:20] LABS: BILIRUBIN,TOTAL 1.2 mg/dL (0.2-1); TOT PROT 6.6 g/dl (6.4-8.2)
[2023-06-25] MEDS ORDERED: SODIUM CHLORIDE 0.9% 500 ML INFUS.BAG IV ONE (20:29)
[2023-06-25] MEDS ORDERED: KETOROLAC TROMETHAMINE 30 MG/1 ML VIAL IVPUSH ONE (20:29)
[2023-06-25] MEDS ORDERED: ACETAMINOPHEN 1000 MG/100 ML BAG IVPB ONE (20:29)
[2023-06-25] MEDS ORDERED: KETOROLAC TROMETHAMINE 30 MG/1 ML VIAL ONE (20:34)
[2023-06-25] MEDS ORDERED: ACETAMINOPHEN INJECTION 100 ML IVPB ONE (20:34)
[2023-06-25] MEDS ORDERED: SODIUM CHLORIDE 2,000 ML IV STA (23:00)
[2023-06-25] MEDS: SODIUM CHLORIDE 1,000 ML IV SCH (23:02)
[2023-06-25] MEDS: HYDROmorphone HCl 2 MG/ML VIAL IVPB PRN (23:03)
[2023-06-26 02:08] VITALS: BMI 27.3
[2023-06-26] MEDS: HYDROmorphone HCl 2 MG/ML VIAL IVPB PRN ×4 (03:41→20:12)
[2023-06-26] MEDS ORDERED: HYDROmorphone HCl 2 MG/ML VIAL IVPB ONE (07:30)
[2023-06-26] MEDS: FOLIC ACID 1 MG TABLET (FP) PO SCH (09:34)
[2023-06-26] MEDS ORDERED: ENOXAPARIN NA (PORCINE) 40 MG/0.4 ML DISP.SYRIN SQ SCH (10:00)
[2023-06-26] MEDS: SODIUM CHLORIDE 1,000 ML IV SCH ×2 (10:13→20:12)
[2023-06-26 10:17] LABS: HEMATOCRIT 29.9 % (32.4-45.2); HEMOGLOBIN 10.4 GM/dL (10.7-15.3); MEAN PLT VOLUME 9.7 fl (7.5-11.1); PLATELET COUNT 110 10^3/uL (134-434); RBC 3.73 M/mm3 (3.60-5.2); RDW 14.9 % (11.6-15.6); WHITE BLOOD COUNT 4.9 K/mm3 (4.0-10.0)
[2023-06-26] MEDS ORDERED: ONDANSETRON 4 MG/2 ML VIAL IVPUSH PRN (10:31)
[2023-06-26 12:20] LABS: CALCIUM 7.9 mg/dL (8.5-10.1)
[2023-06-26 12:21] LABS: ALBUMIN 3.5 g/dl (3.4-5.0); BLOOD UREA NITROGEN 9.1 mg/dL (7-18); MAGNESIUM 1.8 mg/dL (1.8-2.4); POTASSIUM 3.3 mmol/L (3.5-5.1)
[2023-06-26 12:23] LABS: CREATININE 0.5 mg/dL (0.55-1.3); PHOSPHOROUS 2.8 mg/dL (2.5-4.9)
[2023-06-26 12:24] LABS: BILIRUBIN,TOTAL 1.6 mg/dL (0.2-1); TOT PROT 6.2 g/dl (6.4-8.2)
[2023-06-26] MEDS ORDERED: MAGNESIUM OXIDE 400 MG TABLET (FP) PO ONE (12:30)
[2023-06-26] MEDS: POTASSIUM CHLORIDE TABS 20 MEQ TABLET.ER (FP) PO SCH ×2 (13:33→21:26)
[2023-06-26] MEDS: LIDOCAINE 4% PATCH TP SCH (13:33)
[2023-06-26] MEDS: LIDOCAINE PATCH REMOVAL MC SCH (21:26)
[2023-06-27] MEDS: SODIUM CHLORIDE 1,000 ML IV SCH ×3 (00:04→20:39)
[2023-06-27] MEDS: HYDROmorphone HCl 2 MG/ML VIAL IVPB PRN ×7 (00:05→23:33)
[2023-06-27] MEDS: LIDOCAINE 4% PATCH TP SCH (09:47)
[2023-06-27] MEDS: FOLIC ACID 1 MG TABLET (FP) PO SCH (09:48)
[2023-06-27] MEDS: POTASSIUM CHLORIDE TABS 20 MEQ TABLET.ER (FP) PO SCH (09:48)
[2023-06-27 09:59] LABS: BASO % 0.7 % (0-2.0); EOS % 0.6 % (0-4.5); HEMATOCRIT 29.7 % (32.4-45.2); HEMOGLOBIN 10.4 GM/dL (10.7-15.3); LYMPH % 18.3 % (8-40); MCH 29.1 pg (25.7-33.7); MEAN CELL VOLUME 83.2 fl (80-96); MEAN PLT VOLUME 9.9 fl (7.5-11.1); MONO % 5.3 % (3.8-10.2); NEUT % 75.1 % (42.8-82.8); PLATELET COUNT 111 10^3/uL (134-434); RBC 3.57 M/mm3 (3.60-5.2); WHITE BLOOD COUNT 5.4 K/mm3 (4.0-10.0)
[2023-06-27 10:12] LABS: POTASSIUM 4.1 mmol/L (3.5-5.1)
[2023-06-27 10:22] LABS: CALCIUM 8.3 mg/dL (8.5-10.1)
[2023-06-27 10:23] LABS: ALBUMIN 3.5 g/dl (3.4-5.0); BLOOD UREA NITROGEN 5.8 mg/dL (7-18)
[2023-06-27 10:25] LABS: CREATININE 0.4 mg/dL (0.55-1.3)
[2023-06-27 10:27] LABS: TOT PROT 6.4 g/dl (6.4-8.2)
[2023-06-27 10:29] LABS: BILIRUBIN,TOTAL 2.5 mg/dL (0.2-1)
[2023-06-27] MEDS: LIDOCAINE PATCH REMOVAL MC SCH (22:22)
[2023-06-28] MEDS: SODIUM CHLORIDE 1,000 ML IV SCH ×3 (02:27→22:51)
[2023-06-28] MEDS: HYDROmorphone HCl 2 MG/ML VIAL IVPB PRN ×4 (03:09→21:01)
[2023-06-28] MEDS: LIDOCAINE 4% PATCH TP SCH (10:45)
[2023-06-28] MEDS: FOLIC ACID 1 MG TABLET (FP) PO SCH (10:45)
[2023-06-28] MEDS ORDERED: SODIUM CHLORIDE 1,000 ML IV STA (11:32)
[2023-06-28] MEDS: LIDOCAINE PATCH REMOVAL MC SCH (21:02)
[2023-06-29] MEDS: HYDROmorphone HCl 2 MG/ML VIAL IVPB PRN (03:48)
[2023-06-29] MEDS ORDERED: HYDROmorphone HCL 2 MG TABLET PO PRN (07:43)
[2023-06-29] MEDS ORDERED: HYDROmorphone HCl 2 MG/ML VIAL IVPB PRN (07:45)
[2023-06-29] MEDS: LIDOCAINE 4% PATCH TP SCH (10:00)
[2023-06-29] MEDS: FOLIC ACID 1 MG TABLET (FP) PO SCH (10:00)
[2023-06-29] MEDS ORDERED: POLYETHYLENE GLYCOL (HEALTHYLAX) 3350 17 GM PACKET PO SCH (10:00)
[2023-06-29 13:33] VITALS: BP 132/78; PULSE 82; RESP 20; TEMP 98.2
[2023-07-03 18:16] LABS: HGB SOLUBILITY Positive (Negative)
== END 2023-06-29 14:47 | disposition home or self-care (01) | DRG 662 ==
LOC: JER 12:58 → JERBED 18:12 → J8W 06-26 00:33 → UNDODISIN 06-28 19:14
PROVIDERS: ADMIT Internal Medicine; ATTEND Nurse Practitioner Acute Care
DX: D57.09 Hb-SS disease with crisis with other specified complication (principal); M79.605 Pain in left leg
CPT/HCPCS: 36415; 71045-TC-FY; 80053; 83021; 83735; 84100; 84484; 84703; 85025; 85027; 85045; 85660; 93005; 93010; 93970-TC; 97116-GP; 97161-GP; 99285-25

== ENCOUNTER 2024-01-08 07:04 | Emergency (ER) | payer SELFPAY ==
[2024-01-08 07:14] VITALS: TEMP 98.3; BMI 27.6
[2024-01-08] MEDS ORDERED: KETOROLAC TROMETHAMINE 15 MG/ML VIAL ONE (07:37)
[2024-01-08] MEDS ORDERED: morphine SULFATE 4 MG/ML VIAL ONE ×3 (07:37→10:14)
[2024-01-08] MEDS ORDERED: ONDANSETRON 4 MG/2 ML VIAL ONE (07:37)
[2024-01-08] MEDS: morphine CARPU-JECT 4 MG/1 ML DISP.SYRIN IVPUSH ONE ×3 (07:44→10:18)
[2024-01-08] MEDS: ONDANSETRON 4 MG/2 ML VIAL IVPUSH ONE (07:45)
[2024-01-08] MEDS: KETOROLAC TROMETHAMINE 15 MG/ML VIAL IVPUSH ONE (07:45)
[2024-01-08 07:51] LABS: VENOUS BASE EXCESS -1.7 mmol/L (-2-2); VENOUS O2 SATURATION 79.1 % (70-80); VENOUS PCO2 35.4 mmHg (38-52); VENOUS PH 7.417 (7.310-7.410)
[2024-01-08 08:14] LABS: POTASSIUM 3.7 mmol/L (3.5-5.1)
[2024-01-08 08:17] LABS: BLOOD UREA NITROGEN 14.8 mg/dL (7-18); CALCIUM 9.3 mg/dL (8.5-10.1)
[2024-01-08 08:20] LABS: BILIRUBIN,DIRECT 0.3 mg/dL (0.0-0.2); CREATININE 0.7 mg/dL (0.55-1.3)
[2024-01-08 08:22] LABS: BILIRUBIN,TOTAL 1.4 mg/dL (0.2-1); TOT PROT 7.3 g/dl (6.4-8.2)
[2024-01-08 08:43] LABS: BASO % 1.3 % (0-2.0); EOS % 1.7 % (0-4.5); HEMATOCRIT 36.5 % (32.4-45.2); HEMOGLOBIN 12.5 GM/dL (10.7-15.3); LYMPH % 28.8 % (8-40); MCH 27.8 pg (25.7-33.7); MCHC 34.3 g/dl (32.0-36.0); MEAN CELL VOLUME 80.9 fl (80-96); MEAN PLT VOLUME 10.1 fl (7.5-11.1); MONO % 6.8 % (3.8-10.2); NEUT % 61.4 % (42.8-82.8); PLATELET COUNT 177 10^3/uL (134-434); RBC 4.51 M/mm3 (3.60-5.2); RDW 14.9 % (11.6-15.6); RETICULOCYTES 3.17 % (0.5-1.5); WHITE BLOOD COUNT 6.2 K/mm3 (4.0-10.0)
[2024-01-08] MEDS: SODIUM CHLORIDE 0.9% 500 ML INFUS.BAG IV ONE (08:52)
[2024-01-08 09:39] LABS: EPI CELLS 22 /uL (0-25.1); HYALINE CASTS 0 /uL (0-3.1); PH,URINE 5.5 (5.0-8.0); URINE APPEARANCE CLEAR; URINE BACTERIA >9,000 /uL (0-1359); URINE BILIRUBIN NEGATIVE (NEGATIVE); URINE COLOR YELLOW; URINE GLUCOSE (UA) NEGATIVE (NEGATIVE); URINE KETONE NEGATIVE (NEGATIVE); URINE LEUK ESTERASE TRACE (NEGATIVE); URINE NITRITE POSITIVE (NEGATIVE); URINE PROTEIN NEGATIVE (NEGATIVE); URINE RBC 9 /uL (0-23.9); URINE UROBILINOGEN 0.2 mg/dL (0.2-1.0); URINE WBC 65 /uL (0-25.8)
[2024-01-08 10:08] VITALS: BP 143/89; PULSE 76; RESP 17
== END 2024-01-08 10:43 | disposition home or self-care (01) ==
LOC: JER 07:04
PROC: 3E0333Z Introduction of Anti-inflammatory into Peripheral Vein, Percutaneous Approach (ICD-10-PCS; principal; 2024-01-08)
PROC: 3E033GC Introduction of Other Therapeutic Substance into Peripheral Vein, Percutaneous Approach (ICD-10-PCS; 2024-01-08)
PROC: 3E033NZ Introduction of Analgesics, Hypnotics, Sedatives into Peripheral Vein, Percutaneous Approach (ICD-10-PCS; 2024-01-08)
PROC: 3E033NZ Introduction of Analgesics, Hypnotics, Sedatives into Peripheral Vein, Percutaneous Approach (ICD-10-PCS; 2024-01-08)
PROC: 3E033NZ Introduction of Analgesics, Hypnotics, Sedatives into Peripheral Vein, Percutaneous Approach (ICD-10-PCS; 2024-01-08)
DX: M79.604 Pain in right leg (principal); D57.00 Hb-SS disease with crisis, unspecified; N39.0 Urinary tract infection, site not specified
CPT/HCPCS: 36415; 71045-TC-FY; 72170-TC-FY; 73552-TC-RT-FY; 73562-TC-RT-FY; 80053; 81003; 82248; 82550; 82803; 84703; 85025; 85045; 86850; 86900; 86901; 87086; 87186; 93005; 93010; 99285-25

== ENCOUNTER 2024-05-24 05:10 | Emergency (ER) | payer SELFPAY ==
[2024-05-24 05:19] VITALS: BP 100/72; PULSE 77; RESP 20; TEMP 98.6; BMI 26.8
[2024-05-24] MEDS ORDERED: DIPHTH,PERTUSS(ACELL),TET 0.5 ML DISP.SYRIN IM ONE (06:27)
[2024-05-24] MEDS ORDERED: CEPHALEXIN MONOHYDRATE 500 MG CAPSULE (UD) ONE (06:27)
[2024-05-24] MEDS ORDERED: SIMETHICONE 80 MG TAB.CHEW (FP) ONE (06:27)
[2024-05-24] MEDS: DIPHTH,PERTUSS(ACELL),TET 0.5 ML DISP.SYRIN IM ONE (06:30)
[2024-05-24] MEDS: SIMETHICONE 80 MG TAB.CHEW (FP) PO ONE (06:30)
[2024-05-24] MEDS: CEPHALEXIN MONOHYDRATE 500 MG CAPSULE (UD) PO ONE (06:30)
== END 2024-05-24 06:50 | disposition left against medical advice (07) ==
LOC: JER 05:10
PROC: 0HQ1XZZ Repair Face Skin, External Approach (ICD-10-PCS; principal; 2024-05-24)
PROC: 3E0234Z Introduction of Serum, Toxoid and Vaccine into Muscle, Percutaneous Approach (ICD-10-PCS; 2024-05-24)
DX: S01.81XA Laceration without foreign body of other part of head, initial encounter (principal); W22.8XXA Striking against or struck by other objects, initial encounter; Z23 Encounter for immunization
CPT/HCPCS: 70450-TC; 90715; 99284-25

== ENCOUNTER 2025-05-11 06:13 | Emergency (ER) | payer SELFPAY ==
[2025-05-11 06:21] VITALS: TEMP 97.7; BMI 26.4
[2025-05-11] MEDS ORDERED: KETOROLAC TROMETHAMINE 30 MG/1 ML VIAL ONE (06:49)
[2025-05-11] MEDS: KETOROLAC TROMETHAMINE 30 MG/1 ML VIAL IM ONE (06:56)
[2025-05-11] MEDS: LACTATED RINGERS SOLUTION 1000 ML INFUS.BAG IV ONE (08:07)
[2025-05-11 08:45] LABS: ABSOLUTE IMMATURE GRANULOCYTES 0.02 x10^3/uL (0.0-0.031); BASOPHILS # 0.03 x10^3/uL (0.01-0.08); EOSINOPHIL % 0.9 % (0.7-5.8); EOSINOPHILS # 0.04 x10^3/uL (0.04-0.36); MCHC 35.9 g/dl (32.2-35.5); MEAN CELL VOLUME 79.8 fl (79.4-94.8); MONOCYTE # 0.19 x10^3/uL (0.24-0.86); MONOCYTE % 4.0 % (4.7-12.5); RDW 13.3 % (12.2-17.1)
[2025-05-11 08:51] LABS: BG HCT 46.0 % (32.4-45.2); VENOUS BASE EXCESS -0.2 mmol/L (-2-2); VENOUS O2 SATURATION 91.4 % (70-80); VENOUS PCO2 39.2 mmHg (38-52); VENOUS PH 7.409 (7.310-7.410)
[2025-05-11 09:08] LABS: INR 1.07 (0.83-1.09); PROTHROMBIN TIME (PATIENT) 11.8 SEC (9.7-13.0)
[2025-05-11 09:11] LABS: ACTIVATED PTT 31.8 SECONDS (25.2-36.5)
[2025-05-11 09:50] LABS: GLUCOSE,RANDOM 110.0 mg/dL (74-106)
[2025-05-11 09:51] LABS: HIV INTERPRETATION NEGATIVE (NEGATIVE)
[2025-05-11 09:51] LABS: TOT PROT 7.3 g/dl (6.4-8.2)
[2025-05-11 09:52] LABS: HCV DIAGNOSTIC IN-HOUSE W/RFLX NON-REACTIVE (NONREACTIVE)
[2025-05-11 09:52] LABS: CO2 22.0 mmol/L (21-32)
[2025-05-11 09:53] LABS: ALK PHOS 87.0 U/L (40-150)
[2025-05-11 09:56] LABS: CREATININE 0.77 mg/dL (0.55-1.3); SGOT/AST 25.0 U/L (5-34); SGPT/ALT 20.0 U/L (0-55)
[2025-05-11 10:43] VITALS: BP 101/75; PULSE 82; RESP 16
== END 2025-05-11 10:50 | disposition home or self-care (01) ==
LOC: JER 06:13
PROC: 3E033NZ Introduction of Analgesics, Hypnotics, Sedatives into Peripheral Vein, Percutaneous Approach (ICD-10-PCS; principal; 2025-05-11)
PROC: 3E0233Z Introduction of Anti-inflammatory into Muscle, Percutaneous Approach (ICD-10-PCS; 2025-05-11)
DX: D57.1 Sickle-cell disease without crisis (principal); M79.601 Pain in right arm; M79.602 Pain in left arm
CPT/HCPCS: 36415; 71045-TC-FY; 80053; 82803; 84484; 85025; 85610; 85730; 86803; 86850; 86900; 86901; 87389; 93005; 93010; 99285-25